=== PATIENT | male | born 1940 | race Caucasian/White ===

== ENCOUNTER 2017-12-04 09:30 | Outpatient (CLI) | payer MEDICARE, MEDICAID ==
[~2017-12-04 09:30] MED LIST: AMIO200T4 PO; AMIT50TA3 PO; FERR325T28 PO; FLUT1DIS IH; PANT40TA4 PO; SIMV20TA6 PO; WARF2.5T47 PO; WARF5TAB77 PO
== END 2017-12-04 23:59 | disposition home health service (06) ==
LOC: WOU 09:30
PROVIDERS: ATTEND Podiatrist Foot & Ankle Surgery
DX: L89.622 Pressure ulcer of left heel, stage 2 (principal); I83.93 Asymptomatic varicose veins of bilateral lower extremities; Z87.891 Personal history of nicotine dependence; G89.4 Chronic pain syndrome; I10 Essential (primary) hypertension; Z79.01 Long term (current) use of anticoagulants; Z79.899 Other long term (current) drug therapy
CPT/HCPCS: 11042; A6253; A6402; Z7610

== ENCOUNTER 2017-12-11 09:31 | Outpatient (CLI) | payer MEDICARE, MEDICAID | END 2017-12-11 23:59 | disposition home health service (06) | LOC: WOU 09:31 | PROVIDERS: ATTEND Podiatrist Foot & Ankle Surgery | DX: L89.622 Pressure ulcer of left heel, stage 2 (principal); I83.93 Asymptomatic varicose veins of bilateral lower extremities; Z87.891 Personal history of nicotine dependence; G89.4 Chronic pain syndrome; M19.90 Unspecified osteoarthritis, unspecified site; Z79.01 Long term (current) use of anticoagulants; Z79.899 Other long term (current) drug therapy; I10 Essential (primary) hypertension; J45.909 Unspecified asthma, uncomplicated | CPT/HCPCS: 11043; A6253; A6402; Z7610 ==

== ENCOUNTER 2017-12-18 11:30 | Outpatient (CLI) | payer MEDICARE, MEDICAID | END 2017-12-18 23:59 | disposition home health service (06) | LOC: WOU 11:30 | PROVIDERS: ATTEND Podiatrist Foot & Ankle Surgery | DX: L89.624 Pressure ulcer of left heel, stage 4 (principal); I83.93 Asymptomatic varicose veins of bilateral lower extremities; I10 Essential (primary) hypertension; M19.90 Unspecified osteoarthritis, unspecified site | CPT/HCPCS: 11043; A6253; A6402; Z7610 ==

== ENCOUNTER 2017-12-28 09:36 | Outpatient (CLI) | payer MEDICARE, MEDICAID | END 2017-12-28 23:59 | disposition home health service (06) | LOC: WOU 09:36 | PROVIDERS: ATTEND Podiatrist Foot & Ankle Surgery | DX: L89.623 Pressure ulcer of left heel, stage 3 (principal); I83.93 Asymptomatic varicose veins of bilateral lower extremities; Z87.891 Personal history of nicotine dependence; G89.4 Chronic pain syndrome; I10 Essential (primary) hypertension | CPT/HCPCS: 11043; A6207; A6402 ×3; Z7610 ==

== ENCOUNTER 2018-01-04 09:40 | Outpatient (CLI) | payer MEDICARE, MEDICAID | END 2018-01-04 23:59 | disposition home health service (06) | LOC: WOU 09:40 | PROVIDERS: ATTEND Podiatrist Foot & Ankle Surgery | DX: L89.623 Pressure ulcer of left heel, stage 3 (principal); I83.93 Asymptomatic varicose veins of bilateral lower extremities; Z87.891 Personal history of nicotine dependence; G89.4 Chronic pain syndrome; I10 Essential (primary) hypertension; Z79.01 Long term (current) use of anticoagulants; R47.1 Dysarthria and anarthria; Z79.899 Other long term (current) drug therapy | CPT/HCPCS: 11043; A6402; J3490; Z7610 ==